=== PATIENT | female | born 1995 ===

== ENCOUNTER 2017-07-30 00:09 | Emergency (ER) | payer SELFPAY ==
[2017-07-30 00:23] VITALS: BP 137/79; PULSE 94; RESP 16; TEMP 98; O2SAT 99
--- NOTE | 2017-07-30 01:35 | ED PDOC ---
HPI: Back Time Seen by Provider: 07/30/17 00:45 Chief Complaint (Nursing): Back Pain Chief Complaint (Provider): Back Pain History Per: Patient History/Exam Limitations: no limitations Onset/Duration Of Symptoms: Days (x2) Current Symptoms Are (Timing): Constant Quality Of Discomfort: "Pain" Severity: Moderate Associated Symptoms: None Exacerbating Factor(s): Turning, Movement, Sitting Additional Complaint(s): 21 year old female presents to ED with complaints of back pain x2 days, is , and has no past medical history. Patient states she is currently 11 weeks . denies abdominal pain or cough or vaginal bleeding. no sob. Patient denies ever previously experiencing pain this severe. pt without PE risk factors and o2 sat normal PCP: Ron Edmondson - Risk Factors AAA Risk Factors: Neg: Older Than 49 Years Of Age Past Medical History Reviewed: Historical Data, Nursing Documentation, Vital Signs Vital Signs: Last Vital Signs Temp 98.0 F 07/30/17 00:20 Pulse 94 H 07/30/17 00:20 Resp 16 07/30/17 00:20 BP 137/79 07/30/17 00:20 Pulse Ox 99 07/30/17 00:20 - Medical History PMH: No Chronic Diseases - Surgical History Surgical History: Appendectomy - Family History Family History: States: No Known Family Hx - Living Arrangements Living Arrangements: With Family - Social History Current smoker - smoking cessation education provided: No Ex-Smoker (has not smoked in the last 12 months): No Alcohol: None Drugs: Denies - Home Medications Home Medications: Ambulatory Orders Medication Instructions Recorded Ibuprofen [Motrin Tab] 800 mg PO Q8 PRN #20 tab 07/02/16 - Allergies Allergies/Adverse Reactions: Allergies Allergy/AdvReac Type Severity Reaction Status Date / Time No Known Allergies Allergy Verified 07/30/17 00:20 Review of Systems ROS Statement: Except As Marked, All Systems Reviewed And Found Negative Gastrointestinal: Positive for: Vomiting Genitourinary Female: Negative for: Vaginal Bleeding Musculoskeletal: Positive for: Back Pain Physical Exam - Reviewed Nursing Documentation Reviewed: Yes Vital Signs Reviewed: Yes - Physical Exam Appears: Positive for: In Acute Distress (In moderate painful distress) Head Exam: Positive for: ATRAUMATIC Skin: Positive for: Normal Color, Warm, Dry Neck: Positive for: Normal, Painless ROM, Supple Cardiovascular/Chest: Positive for: Regular Rate, Rhythm, Tachycardia Respiratory: Positive for: Normal Breath Sounds. Negative for: Respiratory Distress Gastrointestinal/Abdominal: Positive for: Normal Exam, Soft. Negative for: Tenderness Back: Positive for: Other (Upper back is TTP. Reproducible.no hematoma) Extremity: Positive for: Normal ROM. Negative for: Deformity Neurologic/Psych: Positive for: Alert, Oriented. Negative for: Motor/Sensory Deficits - ECG O2 Sat by Pulse Oximetry: 99 (RA) Pulse Ox Interpretation: Normal Medical Decision Making Medical Decision Makin Initial impression: musculoskeletal pain Initial plan: * Acetaminophen 650mg PO * Re-eval 0221 Upon re-evaluation, patient is feeling better. Patient will follow up with PCP in 1-2 days. Dx: muscular pain pt walking around in NAD. vitals stable. Scribe Attestation: Documented by Katheryn Fisher acting as a scribe for Joleen Key MD. Scribe Attestation: All medical record entries made by the Scribe were at my direction and personally dictated by me. I have reviewed the chart and agree that the record accurately reflects my personal performance of the history, physical exam, medical decision making, and the department course for this patient. I have also personally directed, reviewed, and agree with the discharge instructions and disposition. Disposition - Clinical Impression Clinical Impression: Back pain - Patient ED Disposition Is Patient to be Admitted: No Counseled Patient/Family Regarding: Studies Performed, Diagnosis, Need For Followup - Disposition Disposition: Routine/Home Disposition Time: 02:00 Condition: IMPROVED Additional Instructions: follow up with your primary doctor in 1-2 days take tylenol as needed for pain return to the ED with any worsening or concerning symptoms Instructions: Muscle Spasm (ED), Back Pain (ED) Forms: [employer] (Spanish) Print Language: ETHIOPIAN - POA Present On Arrival: None
== END 2017-07-30 02:44 | disposition home or self-care (01) ==
LOC: H.ER 00:09
DX: M54.9 Dorsalgia, unspecified (principal)